=== PATIENT | female | born 1985 | race Hispanic/Latino ===

== ENCOUNTER 2017-06-18 21:32 | Emergency (ER) | payer BC ==
[2017-06-18 21:37] VITALS: BMI 20.8
[2017-06-18 22:06] VITALS: TEMP 98.2
[2017-06-18 23:16] LABS: URINE BILIRUBIN NEGATIVE (NEGATIVE); URINE BLOOD NEGATIVE (NEGATIVE); URINE GLUCOSE (UA) NEGATIVE (NEGATIVE); URINE KETONE NEGATIVE (NEGATIVE); URINE LEUKOCYTE ESTERASE NEGATIVE Leu/uL (NEGATIVE); URINE PROTEIN NEGATIVE mg/dL (<30 mg/dL); URINE UROBILINOGEN 0.2 E.U./dL (<1 E.U./dL)
[2017-06-18 23:17] LABS: BASO # 0.02 K/mm3 (0.0-2.0); BASO % 0.3 % (0.0-3.0); EOS # 0.4 (0.0-0.7); EOS % 4.5 % (1.5-5.0); GRAN # 3.75 (1.4-6.5); GRAN % 48.1 % (50.0-68.0); HEMATOCRIT 37.6 % (36.0-48.0); LYMPH # 3.1 (1.2-3.4); LYMPH % 39.8 % (22.0-35.0); MEAN CELL VOLUME 87.2 fl (80.0-105.0); MEAN CORPUSCULAR HEMOGLOBIN 29.9 pg (25.0-35.0); MEAN CORPUSCULAR HGB CONC 34.3 g/dl (31.0-37.0); MONO # 0.6 (0.1-0.6); MONO % 7.3 % (1.0-6.0); RED CELL DISTRIBUTION WIDTH 13.1 % (11.5-14.5); WHITE BLOOD COUNT 7.8 10^3/ul (4.5-11.0)
[2017-06-18 23:18] LABS: URINE APPEARANCE CLEAR (CLEAR); URINE COLOR LIGHT YELLOW (YELLOW)
[2017-06-18 23:24] LABS: ALB/GLOB RATIO 1.6 (1.1-1.8); ALKALINE PHOSPHATASE 44 U/L (38-126); ALT/SGPT 35 U/L (7-56); AST/SGOT 21 U/L (14-36); BILIRUBIN,TOTAL 0.6 mg/dL (0.2-1.3); BLOOD UREA NITROGEN 12 mg/dL (7-21); CARBON DIOXIDE 29 mmol/L (21-33); CHLORIDE 104 mmol/L (98-107); GFR AFRICAN-AMERICAN > 60; GLUCOSE,RANDOM 115 mg/dL (70-110); POTASSIUM 3.2 mmol/L (3.6-5.0); SODIUM 140 mmol/L (132-148); TOTAL PROTEIN 6.5 g/dL (5.8-8.3)
[2017-06-18 23:28] LABS: INR 1.1 (0.93-1.08); PARTIAL THROMBOPLASTIN TIME 30.5 Seconds (23.7-30.8)
--- NOTE | 2017-06-18 23:28 | ED PDOC ---
Arrival/HPI - General Chief Complaint: Syncope Time Seen by Provider: 06/18/17 21:46 - History of Present Illness Narrative History of Present Illness (Text): 06/18/17 23:11 31yo female with multiple medical complaints. Pt states she had an episode of epistaxis which spontaneously resolved after which she passed out. States she did not fall, grabbed a handle, and then sat on the floor. States she had some nausea before and after the episode. pt also c/o burning on urination, no discharge or pelvic pain, denies disparunia. Pt also states she has been having intermittent burning in the back of her throat, and R. ear. States that her stool has been loose for the past 3 weeks, no blood, no n/v. No other complaints. Pt agreeable to gc/chlam testing, but states she does not want prophylaxis. Also asked for HIV test. Pt has been made aware to f/u in medical records for results and to bring them to her PMD for treatment and further workup if necessary. Past Medical History - Provider Review Nursing Documentation Reviewed: Yes - Infectious Disease Hx of Infectious Diseases: None - Psychiatric Hx Substance Use: No - Anesthesia Hx Anesthesia: No Family/Social History Family/Social History: Unknown Family HX Smoking Status: Never Smoked Hx Alcohol Use: Yes Frequency of alcohol use: Socially Hx Substance Use: No Allergies/Home Meds Allergies/Adverse Reactions: Allergies egg Allergy (Verified 06/18/17 21:38) RASH mushroom Allergy (Verified 06/18/17 21:38) RASH Home Medications: Home Meds Medication Instructions Recorded Confirmed No Known Home Med 06/18/17 06/18/17 Physical Exam - Physical Exam Narrative Physical Exam (Text): 06/18/17 23:30 - Review of Systems Constitutional: Normal. absent: Fatigue, Weight Change, Fevers Eyes: Normal ENT: sore throat, denies tristhmus Respiratory: Normal. absent: SOB, Cough, Sputum Cardiovascular: syncope. absent: Chest Pain, Palpitations Gastrointestinal: loose stool. absent: Abdominal Pain, Diarrhea, Nausea, Vomiting Genitourinary: Normal. absent: Dysuria, Frequency, Hematuria, vaginal bleeding Musculoskeletal: Normal. absent: Arthralgias, Back Pain, Neck Pain Skin: no rashes, no erythema Neurological: absent: Focal Weakness Endocrine: Normal Hemo/Lymphatic: Normal Psychiatric: No suicidal or homicidal ideations Physical exam Patient appears age appropriate in no distress, speaking full sentences without difficulty - Systems Exam Head: Present: Atraumatic, Normocephalic Pupils: Present: PERRL Extroacular Muscles: Present: EOMI Conjunctiva: Present: Normal Mouth: Present: Moist Mucous Membranes Neck: Present: Normal Range of Motion. No: MIDLINE TENDERNESS, Paraspinal Tenderness Respiratory/Chest: Present: Clear to Auscultation, Good Air Exchange. No: Respiratory Distress, Accessory Muscle Use, Tachypneic Cardiovascular: Present: Regular Rate and Rhythm, Normal S1, S2, Peripheal Pulses Present. No: Murmurs Abdomen: Present: Normal Bowel Sounds. No: Tenderness, Distention, Peritoneal Signs, Rebound, Guarding Back: Present: Normal Inspection. No: Midline Tenderness, Paraspinal Tenderness Upper Extremity: Present: Normal Inspection. No: Cyanosis, Edema Lower Extremity: Present: Normal Inspection. No: Edema Neurological: Present: GCS=15, Speech Normal, cranial nerves II through XII fully intact with no cerebellar abnormality, neurosensory fully intact. No focal neurological deficits. Skin: Present: Warm, Dry, Normal Color. No: Rashes Lymphatic: Present: OX3, NI, NC Psychiatric: Present: Alert, Oriented x 3, Normal Insight, Normal Concentration Vital Signs Reviewed: Yes Vital Signs Temp Pulse Resp BP Pulse Ox 06/18/17 22:04 98.2 F 78 22 125/86 100 Temperature: Afebrile Blood Pressure: Normal Pulse: Regular Respiratory Rate: Normal Appearance: Positive for: Well-Appearing Pain Distress: None Mental Status: Positive for: Alert and Oriented X 3 Finger Stick Blood Glucose: 136 - Systems Exam Pharnyx: Present: Normal. No: ERYTHEMA, EXUDATE, TONSILS ENLARGED, Peritonsilar Swelling, Uvular Deviation, Muffled/Hoarse Voice, Strider, Soft Palate/Uvular Edema Medical Decision Making ED Course and Treatment: 06/19/17 00:17 pt has no EKG abnormalities EKG shows normal sinus, no st-segment elevations, normal intervals. interpreted by me Hb stable no tachycardia hemodynamically stable denies cp/sob/nielsen pt's K is decreased K and Mg ordered pt in no distress states she understands to f/u with outpatient PMD for further workup and specialist referrals states she feels comfortable being dc'd home with outpatient f/u Pt states she understands to return to the ER right away for new or worsening symptoms or for inability to f/u with PMD or specialist as instructed. Patient states that she fully agrees with and understands discharge instructions. States that she agrees with the plan and disposition. Verbalized and repeated discharge instructions and plan. I have given the patient opportunity to ask any additional questions. - Lab Interpretations Lab Results: 06/18/17 23:10 06/18/17 23:10 Lab Results 06/18/17 23:10: Sodium 140, Potassium 3.2 L, Chloride 104, Carbon Dioxide 29, Anion Gap 10, BUN 12, Creatinine 0.6, Est GFR ( Amer) > 60, Est GFR (Non- Af Amer) > 60, Random Glucose 115 H, Calcium 9.0, Total Bilirubin 0.6, AST 21, ALT 35, Alkaline Phosphatase 44, Total Protein 6.5, Albumin 4.0, Globulin 2.5, Albumin/Globulin Ratio 1.6 06/18/17 23:10: Urine Color Light yellow, Urine Appearance Clear, Urine pH 7.0, Ur Specific [place] 1.010, Urine Protein Negative, Urine Glucose (UA) Negative, Urine Ketones Negative, Urine Blood Negative, Urine Nitrate Negative, Urine Bilirubin Negative, Urine Urobilinogen 0.2, Ur Leukocyte Esterase Negative 06/18/17 23:10: PT 11.9 H, INR 1.10 H, APTT 30.5 06/18/17 23:10: WBC 7.8, RBC 4.31, Hgb 12.9, Hct 37.6, MCV 87.2, MCH 29.9, MCHC 34.3, RDW 13.1, Plt Count 246, MPV 11.0, Gran % 48.1 L, Lymph % (Auto) 39.8 H, [place] % (Auto) 7.3 H, Eos % (Auto) 4.5, Baso % (Auto) 0.3, Gran # 3.75, Lymph # 3.1, [place] # 0.6, Eos # 0.4, Baso # 0.02 - Medication Orders Current Medication Orders: Magnesium Oxide (Mag-Ox) 400 mg PO STAT STA Stop: 06/19/17 00:16 Potassium Chloride (K-Dur 20 Meq Er Tab) 40 meq PO STAT STA Stop: 06/19/17 00:16 Disposition/Present on Arrival - Present on Arrival Any Indicators Present on Arrival: No History of DVT/PE: No History of Uncontrolled Diabetes: No Urinary Catheter: No History of Decub. Ulcer: No History Surgical Site Infection Following: None - Disposition Have Diagnosis and Disposition been Completed?: Yes Diagnosis: Syncope Disposition: HOME/ ROUTINE Disposition Time: 00:19 Condition: GOOD Discharge Instructions (ExitCare): Syncope (ED) Additional Instructions: PLEASE RETURN TO THE EMERGENCY DEPARTMENT FOR NEW OR WORSENING SYMPTOMS. RETURN RIGHT AWAY IF YOU CANNOT FOLLOW UP WITH YOUR PRIMARY CARE DOCTOR, CLINIC, OR SPECIALIST IN 1-2 DAYS. Referrals: [facility], [Primary Care Provider] - Follow up with primary Mc Velásquez MD [Staff Provider] - Follow up with primary Ro Ayala MD [Medical Doctor] - Follow up with primary Suzi Meraz MD [Medical Doctor] - Follow up with primary Lonnie Maloney MD [Staff Provider] - Follow up with primary Forms: [facility] ([place]), WORK NOTE
[2017-06-19] MEDS ORDERED: Potassium Chloride 20 mEq ER Tab PO STA (00:15)
[2017-06-19] MEDS ORDERED: Magnesium Oxide 400 mg Tab UD PO STA (00:15)
[2017-06-19 01:10] VITALS: BP 124/83; PULSE 77; RESP 16; O2SAT 99
--- NOTE | 2017-06-19 16:55 | CARD ---
APPROVED REPORT EKG Measurement Heart [id number] <Conclusion> Normal sinus rhythm Normal ECG
== END 2017-06-19 00:50 | disposition home or self-care (01) ==
LOC: MERGE 21:32 → ED 21:32
DX: R55 Syncope and collapse (principal)